=== PATIENT | female | born 1945 | race Hispanic/Latino ===

== ENCOUNTER 2022-12-02 11:00 | Observation (INO) | payer MEDICARE ==
[~2022-12-02] VITALS: Ht 152.4 cm; Wt 83.9 kg
[2022-12-09 10:03] VITALS: BP 144/67; PULSE 72; RESP 18
[2022-12-09 10:17] LABS: BASOPHILS # (AUTO) 0.04 K/uL (0.00-0.20); BASOPHILS % (AUTO) 0.6 % (0.0-5.0); EOSINOPHILS # (AUTO) 0.11 K/uL (0.00-0.70); EOSINOPHILS % (AUTO) 1.7 % (0.0-8.0); HEMATOCRIT 36.9 % (36-48); IMMATURE GRANULOCYTE ABSOLUTE 0.02 K/uL (0-1); LYMPHOCYTES # (AUTO) 2.3 K/uL (1.0-4.8); LYMPHOCYTES % (AUTO) 35.2 % (21.0-51.0); MEAN CORPUSCULAR HEMOGLOBIN 29.3 pg (27.0-33.0); MEAN CORPUSCULAR HGB CONC 32.8 g/dL (32.0-36.0); MEAN CORPUSCULAR VOLUME 89.3 fL (79-99); MONOCYTES # (AUTO) 0.6 K/uL (0.1-1.0); MONOCYTES % (AUTO) 9.7 % (3.0-13.0); NEUTROPHILS # (AUTO) 3.4 K/uL (1.8-7.7); NEUTROPHILS % (AUTO) 52.5 % (40.0-77.0); PLATELET COUNT (AUTO) 261 K/uL (130-400); RED BLOOD CELL COUNT(AUTO) 4.13 MIL/uL (4.00-5.50); RED CELL DISTRIBUTION WIDTH 13.8 % (11.0-15.5); WHITE BLOOD COUNT (AUTO) 6.5 K/uL (4.8-10.8)
[2022-12-09 10:26] LABS: POTASSIUM 4.2 mmol/L (3.5-5.1)
[2022-12-09] MEDS ORDERED: MONT-39 PO (10:39)
[2022-12-09] MEDS ORDERED: UBID1CAP56 PO (10:39)
[2022-12-09] MEDS ORDERED: MAGN400T40 PO (10:39)
[2022-12-09] MEDS ORDERED: TURM500C9 PO (10:39)
[2022-12-09] MEDS ORDERED: OMEG100033 PO (10:39)
[2022-12-09] MEDS ORDERED: GABA300C PO (10:39)
[2022-12-09] MEDS ORDERED: CHOL400T4 PO (10:39)
[2022-12-09] MEDS ORDERED: MULT-503 PO (10:39)
[2022-12-09] MEDS ORDERED: HYDR25TA PO (10:39)
[2022-12-09] MEDS ORDERED: ESCI10TA PO (10:39)
[2022-12-09] MEDS ORDERED: ATOR10 PO (10:39)
[2022-12-09] MEDS ORDERED: METO-408 PO (10:39)
[2022-12-09] MEDS ORDERED: METF-444 PO (10:39)
[2022-12-09] MEDS ORDERED: IRBE300T18 PO (10:39)
[2022-12-09] MEDS ORDERED: AMLO-257 PO (10:39)
[2022-12-09 11:38] LABS: ERYTHROCYTE SEDIMENTATION RATE 35 MM/HR (0-30)
[2022-12-10] VITALS (27 sets, daily range): BP systolic 78–150; BP diastolic 43–80; PULSE 58–95; RESP 14–19; O2SAT 94
[2022-12-10] MEDS ORDERED: 0.9%NACL 1000ML 1,000 ML IV ONE (06:23)
[2022-12-10] MEDS ORDERED: CEFAZOLIN SODIUM 2 GM VIAL ONE (06:23)
[2022-12-10] MEDS ORDERED: GLYCOPYRROLATE 1 MG/5 ML SYRINGE ONE (06:55)
[2022-12-10] MEDS ORDERED: MIDAZOLAM HCL 1 MG/ML 2ML VIAL ONE (06:55)
[2022-12-10] MEDS ORDERED: DEXAMETHASONE SOD PHOSPHATE 10MG/ML 1ML VIAL ONE ×2 (06:55→06:59)
[2022-12-10] MEDS ORDERED: LIDOCAINE PF 100MG/5ML (2%) SYRINGE 5ML ONE (06:55)
[2022-12-10] MEDS ORDERED: SUCCINYLCHOLINE CHLORIDE 20 MG/ML 10 ML VIAL ONE (06:55)
[2022-12-10] MEDS ORDERED: PROPOFOL 10 MG/ML 20ML VIAL IV ONE (06:55)
[2022-12-10] MEDS ORDERED: ROCURONIUM 10MG/1ML SYR 10 MG/ML ML ONE (06:56)
[2022-12-10] MEDS ORDERED: FENTANYL CITRATE PF 50 MCG/1 ML 2ML VIAL ONE (06:56)
[2022-12-10] MEDS ORDERED: NEOSTIGMINE 5MG/5ML SYR IV ONE (06:56)
[2022-12-10] MEDS ORDERED: ONDANSETRON 4MG INJ ONE ×2 (06:56→06:59)
[2022-12-10] MEDS ORDERED: ARTIFICIAL TEARS 3.5 GM OINTMENT ONE (07:31)
[2022-12-10] MEDS ORDERED: MORPHINE PF 100MG/10ML AMP IV ONE ×2 (07:35→07:58)
[2022-12-10] MEDS ORDERED: CEFAZOLIN SODIUM 2 GM VIAL IVPB ONE (07:35)
[2022-12-10] MEDS ORDERED: CEFAZOLIN SODIUM 1 GM VIAL ONE ×2 (07:36→11:34)
[2022-12-10] MEDS ORDERED: THROMBIN-JMI 20000 UNIT KIT TP ONE (07:36)
[2022-12-10] MEDS ORDERED: FENTANYL CITRATE PF 50 MCG/1 ML 5ML AMP IV ONE (07:55)
[2022-12-10] MEDS ORDERED: CEFAZOLIN SODIUM 1 GM VIAL IRRIG ONE (07:58)
[2022-12-10] MEDS ORDERED: THROMBIN 20000 UNITS/VIAL POWDER TP ONE (07:58)
[2022-12-10] MEDS ORDERED: LIDOCAINE 2%-EPI PF 30 ML+BUPIVACAINE/PF 0.25% 30ML /60ML SYR IJ SCH ×2 (08:00)
[2022-12-10] MEDS ORDERED: GENTAMICIN SULFATE 80 MG/2 ML VIAL ONE (09:43)
[2022-12-10] MEDS: LACTATED RINGERS 1000ML 1,000 ML IV SCH (12:00)
[2022-12-10] MEDS ORDERED: MORPHINE 2 MG SYG IVP PRN (12:00)
[2022-12-10] MEDS ORDERED: HYDROCODONE/ACETAMINOPHEN 5/325 MG TAB PO PRN (12:00)
[2022-12-10] MEDS ORDERED: 0.9%NACL 10ML VIAL IVP PRN (12:00)
[2022-12-10] MEDS: CEFAZOLIN SODIUM 2 GM VIAL IVPB SCH ×2 (12:00→19:44)
[2022-12-10] MEDS ORDERED: PROMETHAZINE HCL 25 MG/ML 1ML AMPULE IM PRN (12:00)
[2022-12-10] MEDS ORDERED: SUGAMMADEX SODIUM 200 MG/2 ML VIAL IV ONE (12:01)
[2022-12-10] MEDS ORDERED: EPHEDRINE SULFATE 50 MG/ML AMPULE ONE (12:10)
[2022-12-10] MEDS: DEXAMETHASONE SOD PHOSPHATE 4 MG/ML 1ML VIAL IVP SCH ×2 (13:51→18:06)
[2022-12-10] MEDS: METFORMIN HCL 500 MG TABLET PO SCH (19:47)
[2022-12-10] MEDS: GABAPENTIN 300 MG CAPSULE PO SCH (19:48)
[2022-12-10] MEDS: INSULIN HUMULIN R 100 UNIT/ML 3ML SQ SCH (19:51)
[2022-12-10] MEDS ORDERED: UBIDECARENONE PO SCH (21:00)
[2022-12-10] MEDS ORDERED: VIT E ACETATE PO SCH (21:00)
[2022-12-10] MEDS ORDERED: NON-FORMULARY MEDICATION 1 EACH (Magnesium Oxide (Magnesium) 400 MG) PO SCH (21:00)
[2022-12-10] MEDS ORDERED: FISH OIL 1000 MG/CAP PO SCH (21:00)
[2022-12-10] MEDS ORDERED: MAGNESIUM OXIDE 400 MG TABLET PO SCH (21:00)
[2022-12-11] MEDS: DEXAMETHASONE SOD PHOSPHATE 4 MG/ML 1ML VIAL IVP SCH ×3 (00:17→12:31)
[2022-12-11 00:56] VITALS: BP 114/57; PULSE 82; RESP 18
[2022-12-11] MEDS: LACTATED RINGERS 1000ML 1,000 ML IV SCH (01:20)
[2022-12-11] MEDS: CEFAZOLIN SODIUM 2 GM VIAL IVPB SCH ×3 (03:52→12:31)
[2022-12-11 04:44] VITALS: BP 116/56; PULSE 70; RESP 19
[2022-12-11] MEDS: INSULIN HUMULIN R 100 UNIT/ML 3ML SQ SCH ×2 (05:39→11:30)
[2022-12-11 08:00] VITALS: BP 124/66; PULSE 89; RESP 16; O2SAT 94
[2022-12-11] MEDS ORDERED: MONTELUKAST SODIUM 10 MG TAB PO SCH (09:00)
[2022-12-11] MEDS ORDERED: ATORVASTATIN 20 MG TABLET PO SCH (09:00)
[2022-12-11] MEDS ORDERED: HYDROCHLOROTHIAZIDE 25 MG TABLET PO SCH (09:00)
[2022-12-11] MEDS ORDERED: AMLODIPINE 5 MG TAB PO SCH (09:00)
[2022-12-11] MEDS ORDERED: METOPROLOL SUCCINATE 25 MG TAB.SR.24H PO SCH (09:00)
[2022-12-11] MEDS ORDERED: Irbesartan 300 MG PO SCH (09:00)
[2022-12-11] MEDS: GABAPENTIN 300 MG CAPSULE PO SCH (09:54)
[2022-12-11] MEDS: METFORMIN HCL 500 MG TABLET PO SCH (09:54)
[2022-12-11 12:00] VITALS: BP 130/70; PULSE 77; RESP 14
== END 2022-12-11 13:20 | disposition home or self-care (01) ==
LOC: DAHIP 12-10 05:54 → EDSTATUS 12-10 09:00 → 4CH 12-10 13:05
PROVIDERS: ADMIT Neurological Surgery; ATTEND Neurological Surgery
DX: M48.062 Spinal stenosis, lumbar region with neurogenic claudication (principal); M43.16 Spondylolisthesis, lumbar region; I10 Essential (primary) hypertension; E11.9 Type 2 diabetes mellitus without complications; M51.16 Intervertebral disc disorders with radiculopathy, lumbar region; E66.9 Obesity, unspecified; I45.10 Unspecified right bundle-branch block; Z79.899 Other long term (current) drug therapy; Z98.890 Other specified postprocedural states; Z68.36 Body mass index [BMI] 36.0-36.9, adult
CPT/HCPCS: 80051; 85025; 85651; 36415; 71045; 63047; 63048; 96376 ×2; 96365; 96375; 22612; 22840; 20930; 82948 ×6; 72110; A6260; J1815; J1100 ×7; G0378 ×24; G0379; A5113; A4600; A4510; A4663; J7120; A4344; J3010 ×2; J0690 ×7; J3490 ×4; J2710; J0330; J7030; J0665; J2001; J1580; J2250; J2704; J2274 ×2; J2405 ×2; A4649 ×3; C1776; A4215; A4223; A4222; A4221

== ENCOUNTER → 2023-01-23 | Outpatient (CLI) | payer MEDICARE ==
[~2023-01-23] MED LIST: AMLO-257 PO; ATOR10 PO; CHOL400T4 PO; ESCI10TA PO; GABA300C PO; HYDR25TA PO; IRBE300T18 PO; MAGN400T40 PO; METF-444 PO; METO-408 PO; MONT-39 PO; MULT-503 PO; OMEG100033 PO; TURM500C9 PO; UBID1CAP56 PO
== END | disposition home or self-care (01) ==
LOC: RAH 08:45
PROVIDERS: ATTEND Neurological Surgery
DX: M48.07 Spinal stenosis, lumbosacral region (principal); M43.26 Fusion of spine, lumbar region; L45 Papulosquamous disorders in diseases classified elsewhere; M47.816 Spondylosis without myelopathy or radiculopathy, lumbar region; Z90.49 Acquired absence of other specified parts of digestive tract
CPT/HCPCS: 72100